=== PATIENT | male | born 1995 | race Caucasian/White ===

== ENCOUNTER 2025-01-31 08:53 | Emergency (ER) | payer BC, SELFPAY ==
--- OUTSIDE RECORDS SUMMARY | 2025-01-31 08:56 | XMS_ITS | Clinical Summary ---
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 Gender Identity Not on file Sexual Orientation Not on file Plan of Treatment Health Maintenance Due Date Last Done Comments Hepatitis C Virus (HCV) Screening 1994 TdaP Immunization 1994 Human Papillomavirus (HPV) Immunization (2 - Male 3-dose series) 12/12/2011 11/14/2011 Hepatitis B Immunization (1 of 3 - 19+ 3-dose series) 2013 SARS-COV-2 Immunization ( - season) 2024 Influenza Immunization (#1) 2025 Respiratory Syncytial Virus (RSV) Immunization (Adult) (1 - 1-dose 75+ series) 2069 Meningococcal Immunization (ACWY) Completed 012 Pneumococcal Immunization Combined Aged Out No longer eligible based on patient's age to complete this topic Rotavirus Immunization Aged Out No lo nger eligible based on patient's age to complete this topic
--- OUTSIDE RECORDS SUMMARY | 2025-01-31 08:56 | XMS_ITS | Clinical Summary ---
Author Organization [facility] [employer] Address [address] [place] [address] Care Team Providers Care Electric Melt Operator Name Role Phone Natasha Wall Primary Care Pr ovider Source Comments [facility] [employer],non-owned Affiliates and Associated Physician Practices is amultiple site organization consisting of ambulatory clinics and hospital sitesin [place], [place], [place] and [place]. This disclosure is being madepursuant to the Care Everywhere program and may not contain all information available regarding this patient. Last updated 18.[facility] [employer] Allergies Active Allergy Reactions Criticality Noted Date Comments Augmentin GI Discomfort 06/17/2017 vomiting Suprax Rash Medium 06/17/2017 Pt unsure states as Medications * Be aware that medications may not be up to date on this document. Alwaysverify current medications with the patient. 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 Gender Identity Not on file Sexual Orientation Not on file Last Filed Vital Signs Vital Sign Reading Time Taken Comments Blood Pressure 106/68 04/08/2020 10:52 AM CDT Pulse 66 04/08/2020 10:52 AM CDT Temperature 37 C (98.6 F) 04/08/2020 10:52 AM CDT Respiratory Rate 16 04/08/2020 10:52 AM CDT Oxygen Saturation 98% 04/08/2020 10:52 AM CDT Inhaled Oxygen Concentration - - Weight 70.3 kg (155 lb) 04/08/2020 10:52 AM CDT Height 182.9 cm (6') 04/08/2020 10:52 AM CDT Body Mass Index 21.02 04/08/2020 10:52 AM CDT Plan of Treatment Health Maintenance Due Date Last Done Comments HIV SCREENING 2009 HEPATITIS C SCREENING 12/10/2012 DTAP/TDAP/TD VACCINES (1 - Tdap) 2013 HEPATITIS B VACCINE (1 of 3 - 19+ 3-dose series) 2013 HPV VACCINE (1 - 3-dose SCDM series) 2021 COVID-19 VACCINE (1 - 2023-2 5 season) 2024 DEPRESSION SCREENING 07/02/2024 INFLUENZA VACCINE (#1) 2025 ZOSTER VACCINE (1 of 2) 2044 HIB VACCINE Aged Out No longer eligi ble based on patient's age to complete this topic MENINGOCOCCAL (Group B) VACC INE SHARED DECISION-MAKING Aged Out No longer eligibl e based on patient's age to complete this topic MENINGOCOCCAL GROUPS A/C/Y/W VACCINE Aged Out No longer eligible b ased on patient's age to complete this topic PNEUMOCOCCAL VACCINE Aged Out No long er eligible based on patient's age to complete this topic Insurance [facility] Member Subscriber Plan / Payer (Ef fective 2019-Present) Name:Netfali Liu Member ID:Not on file Relation to Subscriber:Child Name:NOEADWOA Date of :1963 (Home) Address: [address] [place] [address] [place] [address] Payer ID:[id number] (NAIC) Type:O Address: [facility] [address] [place] [id number] Care Teams Electric Melt Operator Relationship Specialty Start Date End Date Natasha Wall PA [address] [place] [address] PCP - General Physician Forestry Engineer 07/03/18
--- OUTSIDE RECORDS SUMMARY | 2025-01-31 08:56 | XMS_ITS | Clinical Summary ---
Author Organization [address] Address [address] [place] [id number] Care Team Providers Care Bun Machine Operator Name Role Phone Unknown, Notinfile Primary Care Provider Unavail able Allergies Active Allergy Reactions Criticality Noted Date Comments Amoxicillin-Pot Clavulanate Cat Dander Sneezing Low 06/07/2022 Cefixime Rash Medium 06/17/2017 Pt unsure states as Medications No known medications Active Problems Problem Noted Date Diagnosed Date Night sweats 11/24/2014 Reduced libido 11/24/2014 Polyuria 11/20/2014 Excessive thirst 11/20/2014 Encounters Date Type Department Care Team Description 11/18/2024 Results Follow-Up [facility] at [address] [address] Angelica Judd NP Throat culture Throat 11/16/2024 10:11 AM CDT - 11/16/2024 11:59 PM [place] [address] Nasopharyngitis Discharge Disposition: Discharge to home or self care 11/16/2024 9:30 AM CDT Office Visit [facility] at [address] [address] Natalee Parker PA Nasopharyngitis (Primary Dx) from Last 3 Months Immunizations Immunization Administration Dates Next Due HPV, Quadrivalent 11/14/2011 Meningococcal Conjugate (Menveo) 11/14/2011 Tetanus Toxoid, Unspecified 07/02/2014 Surgical History Surgery Date Site/Laterality Comments TYMPANOSTOMY TUBE PLACEMENT Ear Pressure Equalization Tube, Insertion, Bilaterally - 1996 (Added by TW Conv) [place] TONSILLECTOMY & ADENOIDEC LELE <AGE 12 Tonsillectomy With Adenoidectomy - 1999 (Added by TW Conv) Family History Medical History Relation Name Comments Thyroid cancer Father Family histor y of malignant neoplasm of thyroid - (Added by TW Conv) Thyroid disease Father Family histo ry of thyroid problem - father: thyroid cancer, likely papillary - s/p thyroidectomy (Added by TW Conv) Thyroid disease Mother Family histo ry of thyroid problem - father: thyroid cancer, likely papillary - s/p thyroidectomy (Added by TW Conv) Relation Name Status Comments Father Mother Social History Tobacco Use Types Packs/Day Years Used Date Smoking Tobacco: Former Sex and Gender Information Value Date Recorded Sex Assigned at Not on file Legal Sex Male 1:31 AM STAFF PHARMACIST HOSPITAL Gender Identity Not on file Sexual Orientation Not on file Obstetrics History Last Filed Vital Signs Vital Sign Reading Time Taken Comments Blood Pressure 111/69 11/16/2024 9:29 AM CDT Pulse 65 11/16/2024 9:29 AM CDT Temperature 37 C (98.6 F) 11/16/2024 9:29 AM CDT Respiratory Rate 18 11/16/2024 9:29 AM CDT Oxygen Saturation 100% 11/16/2024 9:29 AM CDT Inhaled Oxygen Concentration - - Weight 80 kg (176 lb 4.8 oz) 11/16/2024 9:29 AM CDT Height 182.9 cm (6') 11/16/2024 9:29 AM CDT Body Mass Index 23.91 11/16/2024 9:29 AM CDT Plan of Treatment Health Maintenance Due Date Last Done Comments Depression Screening 1994 Hepatitis C Screening 1994 DTaP/Tdap/Td Vaccine (1 - Tdap) 2005 Varicella Vaccines (1 of 2 - 13+ 2-dose series) 12/16/2007 HPV Vaccines (2 - Male 3-dos e series) 12/12/2011 11/14/2011 Hepatitis B Screening 2012 Regular Well Visit/Exam 18-64 2012 Covid-19 Vaccine (3 - 2023-2 5 season) 2024 10/04/2020, 09/12/2020 Influenza Vaccine (#1) 2025 Pneumococcal vaccine <65 Aged Out No longer eligible based on patient's age to complete this topic Procedures Procedure Name Priority Date/Time Associated Diagnosis Comments THROAT CULTURE Routine 11/16/2024 10:11 AM CDT Nasopharyngitis POC INFLUENZA A/B, COVID-19 ANTIGEN Routine 11/16/2024 10:03 AM CDT Nasopharyngitis POCT RAPID STREP Routine 11/16/2024 9:43 AM CDT Nasopharyngitis from Last 3 Months Results * Throat culture Throat (11/16/2024 10:11 AM CDT) Report Final Report: No growth of pathogens. Comment:Testing performed by : [facility], [address] [place]., [address] Throat 11/16/2024 10:1 1 AM CDT 11/16/2024 6:56 PM CDT Narrative AMY Sailaja 11/18/2024 7:54 AM CDT Testing performed by [facility] Microbiology Laboratory ([phone]). Natalee THOMAS LAB MICROBIOLOGY - GENER AL ORDERABLES Final Result [facility] [address] [facility] Department [place] [address] * POC Influenza A/B, COVID-19 antigen (11/16/2024 10:03 AM CDT) Influenza A Ag, POC Negative Negative [facility] Influenza B Ag, POC Negative Negative [facility] COVID-19 Ag POC Presumptive Negative Presumptive Negative, Invalid [facility] Nasal 11/16/2024 10:0 3 AM CDT Natalee THOMAS POINT OF CARE TEST ORDER FABIÁN Final Result [facility] [address] [place] [address] * POCT rapid strep A (11/16/2024 9:43 AM CDT) Rapid Strep A, POC Negative Negative Swab 11/16/2024 9:43 AM CDT Natalee THOMAS POINT OF CARE TEST ORDER FABIÁN Final Result from Last 3 Months Insurance [employer] O[employer] Care Teams Bun Machine Operator Relationship Specialty Start Date End Date Unknown, Notinfile PCP - General 06/07/22
--- OUTSIDE RECORDS SUMMARY | 2025-01-31 08:56 | XMS_ITS | Referral Summary ---
Author Organization [address] [address] Care Team Providers Care Air Conditioning Coil Assembler Name Role Phone Unknown, Notinfile Primary Care Provider Unavail able Encounters Date Type Department Care Team Description 11/18/2024 Results Follow-Up [facility] at [address] [address] Angelica Judd NP Throat culture Throat 11/16/2024 10:11 AM CDT - 11/16/2024 11:59 PM CDT Hospital Encounter [address] [address] Nasopharyngitis Discharge Disposition: Discharge to home or self care 11/16/2024 9:30 AM CDT Office Visit [facility] Medical [facility] Care at [address] [address] Natalee Parker PA Nasopharyngitis (Primary Dx) from Last 3 Months Allergies Active Allergy Reactions Criticality Noted Date Comments Amoxicillin-Pot Clavulanate Cat Dander Sneezing Low 06/07/2022 Cefixime Rash Medium 06/17/2017 Pt unsure states as infant Medications No known medications Active Problems Problem Noted Date Diagnosed Date Night sweats 11/24/2014 Reduced libido 11/24/2014 Polyuria 11/20/2014 Excessive thirst 11/20/2014 Immunizations Immunization Administration Dates Next Due HPV, Quadrivalent 11/14/2011 Meningococcal Conjugate (Menveo) 11/14/2011 Tetanus Toxoid, Unspecified 07/02/2014 Social History Tobacco Use Types Packs/Day Years Used Date Smoking Tobacco: Former Sex and Gender Information Value Date Recorded Sex Assigned at Not on file Legal Sex Male 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 Comment:Testing performed by : [facility], [address] [place]., [address] Throat 11/16/2024 10:1 1 AM CDT 11/16/2024 6:56 PM CDT Narrative AMY HORAN - 11/18/2024 7:54 AM CDT Testing performed by [facility] Microbiology Laboratory ([phone]). us Natalee THOMAS LAB MICROBIOLOGY - GENER AL ORDERABLES Final Result AMY [id number] [address] Department [place] [address] * POC Influenza A/B, COVID-19 antigen (11/16/2024 10:03 AM CDT) Influenza A Ag, POC Negative Negative [facility] Influenza B Ag, POC Negative Negative [facility] COVID-19 Ag POC Presumptive Negative Presumptive Negative, Invalid [facility] Nasal 11/16/2024 10:0 3 AM CDT Natalee THOMAS POINT OF CARE TEST ORDER FABIÁN Final Result [facility] [address] [place] [address] * POCT rapid strep A (11/16/2024 9:43 AM CDT) Rapid Strep A, POC Negative Negative Swab 11/16/2024 9:43 AM CDT Natalee THOMAS POINT OF CARE TEST ORDER FABIÁN Final Result from Last [address] [place] [address] [employer] Care Teams Air Conditioning Coil Assembler Relationship Specialty Start Date End Date Unknown, Notinfile PCP - General 06/07/22
--- OUTSIDE RECORDS SUMMARY | 2025-01-31 08:56 | XMS_ITS | Continuity of Care Document ---
Author Organization [facility] Address [address] [place] [address] Phone Care Team Providers Care Art Department Head Name Role Phone Bernabe OD, Negrito Unavailable Unavailable Procedures Procedure Date Contact Lens Check Contact Lens Check Contact Lens Check Contact Lens Check Contact Lens Check Eye Exam, New Patient Refraction Advance Directives Directive Yes / No Effective Date File Name No Information Encounters Encounter Description Practice Location Reason(s) For Visit Diagnoses Date Provider Providers Copied on Encounter [facility], [address] [place] [address] [address], [place], [place], [id number], tel:[phone] [facility] No Information -201 0 Bernabe OD Negrito. [address], [place], [place], [facility] [place], . tel:[phone] [facility], [address], [place], [place], [id number], [place] tel:[phone] [facility] No Information 201 0 Bernabe OD Negrito. [address], [place], [place], [facility] [place], . tel:[phone] [facility], [address] [place] [address] [address], [place], [place], [id number], [place] tel:[phone] [facility] No Information Sep-0 3-201 0 Bernabe OD Negrito. [address], [place], [place], [facility] [place], [place]. tel:[phone] [facility], [address] [place] [address] [address], [place], [place], [id number], tel:[phone] [facility] No Information Aug-2 7-201 0 Bernabe OD Negrito. [address] [facility] [address], [place], [place], [facility] [place], [place]. tel:[phone] [facility], [address] [place] [address] [address], [place], [place], [id number], tel:[phone] [facility] No Information Aug-2 0-201 0 Bernabe OD Negrito. [address] [facility] [address] , [address], [place], [place], [facility] [place], [place]. tel:[phone] [facility], [address] [place] [address] [address], [place], [place], [id number], tel:[phone] [facility] No Information Qunin-3 0-201 0 Bernabe OD Negrito. [address] [facility] [address] , [address], [place], [place], [facility] [place], . tel:[phone] Family History Family Member Type Diagnosis Age At Onset No Information Payers Payer name Insurance type Covered green party ID Authoriza tion(s) No Information Social History Type Description Quantity Date Captured Comments Sex Male Smoking Status No Information Chief Complaint And Reason For Visit No Information Reason For Referral Reason For Referral No Information History Of Present Illness Encounter Date Complaint History Of Prese nt Illness No Information Functional Status Date Functional Assessmen t No Information Instructions Date Instruction Additional Infor mation No Information Assessments Type Assessment Date No Information Patient Care Teams Name Effective Dates (start - stop) Status Members No Information
--- OUTSIDE RECORDS SUMMARY | 2025-01-31 08:59 | XMS_ITS | Continuity of Care Document ---
Author Organization [facility] Address [address] [place] [address] Phone Care Team Providers Care Thoracic Medicine Specialist Name Role Phone Bernabe OD, Negrito Unavailable Unavailable Procedures Procedure Date Contact Lens Check Contact Lens Check Contact Lens Check Contact Lens Check Contact Lens Check Eye Exam, New Patient Refraction Advance Directives Directive Yes / No Effective Date File Name No Information Encounters Encounter Description Practice Location Reason(s) For Visit Diagnoses Date Provider Providers Copied on Encounter [facility], [address] [place] [address] [address], [place], [place], [id number], tel:[phone] [facility] No Information -201 0 Bernabe OD Negrito. [address], [place], [place], [facility], . tel:[phone] [facility], [address], [place], [place], [id number], [place] tel:[phone] [facility] No Information 201 0 Bernabe OD Negrito. [address], [place], [place], [facility], . tel:[phone] [facility], [address] [place] [address] [address], [place], [place], [id number], [place] tel:[phone] [facility] No Information Sep-0 3-201 0 Bernabe OD Negrito. [address], [place], [place], [facility], [place]. tel:[phone] [facility], [address] [place] [address] [address], [place], [place], [id number], tel:[phone] [facility] No Information Aug-2 7-201 0 Bernabe OD Negrito. [address] [facility] , [address], [place], [place], [facility], [place]. tel:[phone] [facility], [address] [place] [address] [address], [place], [place], [id number], tel:[phone] [facility] No Information Aug-2 0-201 0 Bernabe OD Negrito. [address] [facility] , [address], [place], [place], [facility], [place]. tel:[phone] [facility], [address] [place] [address] [address], [place], [place], [id number], tel:[phone] [facility] No Information Quinn-3 0-201 0 Bernabe OD Negrito. [address] [facility] , [address], [place], [place], [facility], . tel:[phone] Family History Family Member Type Diagnosis Age [...]
[2025-01-31 09:05] VITALS: BP 120/74; PULSE 82; RESP 14; TEMP 36.6; O2SAT 100
[2025-01-31 09:27] LABS: EDSTREPNEGPOS1 Negative (Negative)
--- NOTE | 2025-01-31 09:47 | ED.GENADULT ---
HPI - General Adult General Chief complaint: Upper Respiratory Infection Stated complaint: Sore Throat Source: patient Mode of arrival: ambulatory Limitations: no limitations History of Present Illness HPI narrative: Pt presents for evaluation of sore throat. He states he developed muscle aches seven days ago. The following day he developed a sore throat. In the past he has had strep throat and his sore throat has been preceded by muscle pain during those episodes. He initially had a fever but has not had one since last weekend. He visualized some ulcerative lesions in his posterior pharynx. No cough, SOB, or other symptoms. His child was sent home with [id number] five days ago. He has been taking ibuprofen for his symptoms. Pain persists. He does not smoke or vape. Related Data Allergies Allergy/AdvReac Type Severity Reaction Status Date / Time clavulanic acid Allergy Mild Verified 02/21/17 08:50 Penicillins Allergy Mild Verified 02/21/17 08:50 amoxicillin Allergy Unknown Verified 02/21/17 08:50 cefixime Allergy Unknown Verified 02/21/17 08:50 BETALACTAMASEIN Allergy Mild Uncoded 02/21/17 08:50 Cat Dander Allergy Unknown Uncoded 02/21/17 08:50 Review of Systems Review of Systems: CONSTITUTIONAL: Reports fever last weekend, since resolved. Denies chills, or sweats. EYES: Denies visual changes, redness, or discharge. ENT: Reports sore throat. Denies rhinorrhea, congestion, or otalgia. CARDIOVASCULAR: Denies chest pain, palpitations, or edema. RESPIRATORY: Denies cough or dyspnea. GASTROINTESTINAL: Denies abdominal pain, nausea, vomiting, or diarrhea. GENITOURINARY: Denies dysuria or hematuria. SKIN: Denies rash or itching. MUSCULOSKELETAL: Reports muscle aches last weekend, since resolved NEUROLOGIC: Denies headache, numbness, dizziness, or weakness. PSYCHIATRIC: Denies anxiety or depression. [facility] Past Medical History Medical History No pertinent past medical history Surgical History Surgical History History of tonsillectomy and adenoidectomy Family History Family History Mother Family history non-contributory Social History Social History Smoking status: Never smoker Substance use: never Living arrangements: with family Gender identity (if verbalized by the patient): Male Sexual Orientation (if Verbalized by the Patient): Straight or Heterosexual Spiritual care concerns: No Exam Narrative: GENERAL: Well-appearing, well-nourished, and in no acute distress. HEAD: Normocephalic, atraumatic. EYES: PERRLA and EOMI. ENT: Nares clear, no rhinorrhea or epistaxis. Mucous membranes moist. There is posterior pharyngeal erythema without exudate. There is an approximately 5 mm ulcerative lesion to the left posterior pharynx. Bilateral TMs pearly acosta nonbulging NECK: Supple. No adenopathy or masses. No carotid bruits or JVD CHEST: Clear to auscultation. No respiratory distress. No wheezes rales or rhonchi HEART: Regular rate and rhythm. No murmur heard. Normal peripheral pulses. ABDOMEN: Soft, nontender, nondistended, normal active bowel sounds. EXTREMITIES: Normal range of motion. No edema. SKIN: Warm, dry, no rash. NEURO: No focal deficits. Alert and oriented x3. PSYCH: Normal mood and affect. Course Course Emergency Course: This is a 29 year old male who presented for evaluation of sore throat. Rapid strep negative. Offered script for abx as his symptoms were preceded by muscle pain, which he experiences with previous bouts of strep. He declined. Will await throat culture. Discharge with viscous lidocaine. Cepacol and ibuprofen may help. Follow up with primary provider. Go to the ER for worsening symptoms. Patient in agreement with plan of care. Level of Care: Express Care Visit Vital Signs Vital signs: Vital Signs Temperature 36.6 C 01/31/25 09:05 Pulse Rate 82 01/31/25 09:05 Respiratory Rate 14 01/31/25 09:05 Blood Pressure 120/74 01/31/25 09:05 Pulse Oximetry 100 01/31/25 09:05 Oxygen Delivery Room Air 01/31/25 09:05 Temperature 36.6 C 01/31/25 09:05 Pulse Rate 82 01/31/25 09:05 Respiratory Rate 14 01/31/25 09:05 Blood Pressure 120/74 01/31/25 09:05 Pulse Oximetry 100 01/31/25 09:05 Oxygen Delivery Room Air 01/31/25 09:05 Medical Decision Making Vital Signs Vital Signs: Vital Signs Temperature 36.6 C 01/31/25 09:05 Pulse Rate 82 01/31/25 09:05 Respiratory Rate 14 01/31/25 09:05 Blood Pressure 120/74 01/31/25 09:05 Pulse Oximetry 100 01/31/25 09:05 Oxygen Delivery Room Air 01/31/25 09:05 Temperature 36.6 C 01/31/25 09:05 Pulse Rate 82 01/31/25 09:05 Respiratory Rate 14 01/31/25 09:05 Blood Pressure 120/74 01/31/25 09:05 Pulse Oximetry 100 01/31/25 09:05 Oxygen Delivery Room Air 01/31/25 09:05 Lab Data Labs: Lab Results 01/31/25 Range/Units 09:26 POC Grp A Strep Screen Negative (Negative) Discharge Plan Discharge Clinical Impression: Pharyngitis, Hand, foot and mouth disease Patient Disposition: Home Condition: Stable Instructions: Antibiotic Form, Pharyngitis (ED) Additional Instructions: CEPACOL LOZENGES AND IBUPROFEN MAY HELP REDUCE YOUR SYMPTOMS Patient Language: [place] Prescriptions: New lidocaine HCl [Lidocaine Viscous] 2 % solution 15 applic PO QID PRN (Reason: pain) Qty: 300 0RF Follow-up/Referrals: Tamy Dickey MD [Physician] - Time of Disposition: 09:45
== END 2025-01-31 09:54 | disposition home or self-care (01) ==
PROVIDERS: Emergency Provider Nurse Practitioner
DX: J02.9 Acute pharyngitis, unspecified (principal); B08.4 Enteroviral vesicular stomatitis with exanthem
CPT/HCPCS: 87081; 87880; 99203; G0463